=== PATIENT | male | born 1975 | race Caucasian/White ===

== ENCOUNTER 2023-06-14 20:57 | Emergency (ER) | payer MEDICAID ==
[~2023-06-14 20:57] MED LIST: FOLI-43 PO; LACT10SO81 MT; MIDO5TAB4 PO; PROT40 MT
[2023-06-14 21:00] VITALS: PULSE 99
== END 2023-06-14 21:19 | disposition home or self-care (01) ==
LOC: ER 20:57
DX: Z45.2 Encounter for adjustment and management of vascular access device (principal); F10.20 Alcohol dependence, uncomplicated; Y90.9 Presence of alcohol in blood, level not specified
CPT/HCPCS: 82962; 99281; 99282

== ENCOUNTER 2023-06-16 05:05 | Inpatient (IN) | payer MEDICAID ==
[~2023-06-16] VITALS: Ht 165.1 cm; Wt 62.6 kg
[2023-06-16 06:33] LABS: HEMATOCRIT. 27.2 % (42.0-52.0); HEMOGLOBIN. 9.2 g/dL (14.0-18.0); INDEX HEMOLYSI 1 (1-3); MEAN CORPUSCULAR HEMOGLOBIN 33.5 pg (28.0-32.0); MEAN CORPUSCULAR HGB CONC 33.7 g/dL (31.0-37.0); MEAN CORPUSCULAR VOLUME 99.3 fL (80.0-94.0); MEAN PLATELET VOLUME 9.5 fl (7.4-10.4); PLATELET 153 x1000/uL (130-400); RED BLOOD CELL COUNT 2.74 mill/uL (4.7-6.1); WHITE BLOOD COUNT 27.6 x1000/uL (4.5-11.0)
[2023-06-16 06:35] LABS: CHLORIDE 100 mEq/L (98-107); INDEX HEMOLYSI 1 (1-3); INDEX ICTERIC 6 (1-4); INDEX LIPEMIC 1 (1-3); POTASSIUM 5.9 mEq/L (3.5-5.1); SODIUM 124 mEq/L (136-145)
[2023-06-16 06:36] LABS: AMMONIA < 10 uMol/L (<32)
[2023-06-16 06:41] LABS: ALANINE AMINOTRANSFERASE 45 IU/L (13-61); ASPARTATE AMINOTRANSFERASE 116 IU/L (15-37); BILIRUBIN TOTAL 22.7 mg/dL (0.1-1.0); CARBON DIOXIDE 14 mEq/L (21-32); GLUCOSE 91 mg/dL (70-105); PROTEIN TOTAL 5.6 g/dL (6.0-8.3)
[2023-06-16 06:49] LABS: DIFFERENTIAL COMMENT 1
[2023-06-16 06:56] LABS: UREA NITROGEN BLOOD 85 mg/dL (7-21)
[2023-06-16 06:57] LABS: CREATININE 6.2 mg/dL (0.6-1.3)
[2023-06-16] MEDS ORDERED: FUROSEMIDE 100MG/10ML VIAL IV STA (07:09)
[2023-06-16] MEDS ORDERED: ALBUTEROL (0.083%) 2.5MG/3ML NEB HHN ONE (07:15)
[2023-06-16] MEDS ORDERED: INSULIN REGULAR (HUMULIN R) 300UNITS/3ML VIAL IV ONE (07:15)
[2023-06-16] MEDS ORDERED: SODIUM BICARBONATE 8.4% 1 MEQ/ML 50ML SYR IV ONE (07:15)
[2023-06-16] MEDS ORDERED: DEXTROSE 50% WATER 50ML SYRINGE IV ONE (07:15)
[2023-06-16] MEDS ORDERED: CALCIUM CHLORIDE 1GM/10ML SYR IV ONE (07:15)
[2023-06-16] MEDS ORDERED: FUROSEMIDE 40MG/4ML VIAL IVP SCH (07:45)
[2023-06-16 08:24] VITALS: PULSE 101; RESP 22; O2SAT 100
[2023-06-16 09:32] LABS: INDEX HEMOLYSI 2 (1-3); INDEX ICTERIC 6 (1-4); INDEX LIPEMIC 1 (1-3)
[2023-06-16 09:42] LABS: INDEX HEMOLYSI 1 (1-3)
[2023-06-16 09:45] LABS: CREATINE KINASE 26 IU/L (39-308); CREATINE KINASE MB FRACTION 1.2 ng/mL (0.5-3.6); ETHANOL BLOOD < 10 mg/dL (-10); HDL CHOLESTEROL 12 mg/dL (40-59); IRON 39 ug/dL (50-175); LDL CHOLESTEROL 28 mg/dL (5-100); T4 FREE 0.99 ng/dL (0.76-1.46); TOTAL IRON BINDING CAPACITY 52 ug/dL (250-450); TRIGLYCERIDE 92 mg/dL (0-150)
[2023-06-16] MEDS ORDERED: DOCUSATE SODIUM 100MG CAPSULE PO PRN (10:00)
[2023-06-16] MEDS ORDERED: ONDANSETRON HCL 4MG/2ML INJ IV PRN (10:00)
[2023-06-16] MEDS ORDERED: ACETAMINOPHEN 325MG TABLET PO PRN ×2 (10:00)
[2023-06-16] MEDS ORDERED: IPRATROPIUM/ALBUTEROL 0.5-3(2.5)MG/3ML NEB HHN PRN (10:00)
[2023-06-16] MEDS ORDERED: CLONIDINE 0.1MG TABLET PO PRN (10:00)
[2023-06-16] MEDS ORDERED: GUAIFENESIN 200MG/10ML SUGAR FREE UDC PO PRN (10:00)
[2023-06-16] MEDS ORDERED: ZOLPIDEM TARTRATE 5MG TABLET PO PRN (10:00)
[2023-06-16] MEDS ORDERED: LORAZEPAM 0.5MG TABLET PO PRN (10:00)
[2023-06-16] MEDS ORDERED: SODIUM CHLORIDE 0.9% 1,000 ML IV SCH (10:00)
[2023-06-16 10:07] LABS: CHOLESTEROL < 50 mg/dL (<200)
[2023-06-16 10:08] LABS: LACTIC ACID 2.8 mmol/L (0.4-2.0)
[2023-06-16 10:15] LABS: FOLIC ACID (FOLATE) SERUM > 20.00 ng/mL (>5.38); PLATELET ESTIMATE NORMAL; VITAMIN B12 SERUM > 2000.0 pg/mL (211-911)
[2023-06-16] MEDS ORDERED: SODIUM CHLORIDE 0.9% 1000ML BAG (SEPSIS BOLUS) IV NR (10:15)
[2023-06-16 10:16] LABS: ANISOCYTOSIS 2+
[2023-06-16] MEDS ORDERED: MEROPENEM 1,000 MG in SODIUM CHLORIDE 0.9% 100 ML IV SCH (10:30)
[2023-06-16] MEDS ORDERED: VANCOMYCIN 1.25GM PMX (XELLIA) 250 ML IV NR (11:00)
[2023-06-16] MEDS ORDERED: MEROPENEM 500MG in NORMAL SALINE 50ML IV SCH (11:00)
[2023-06-16] MEDS ORDERED: ENOXAPARIN 30MG/0.3ML SYR SUBCUT SCH (11:00)
[2023-06-16] MEDS ORDERED: SODIUM BICARBONATE 5MEQ SYR 150 MEQ in DEXTROSE 5% WATER 1,000 ML IV SCH (11:15)
[2023-06-16 11:28] LABS: BG BASE EXCESS -12.4 mmol/L (-2.0-2.0); BG CARBOXYHEMOGLOBIN 1.3 % (0.5-1.5); BG DEOXYHEMOGLOBIN 3.7 % (0.0-5.0); BG FRACTION INSPIRED OXYGEN 21; BG HCO3 ACT 11.2 mmol/L (22.0-26.0); BG METHEMOGLOBIN 0.4 % (0.0-1.5); BG OXYGEN SATURATION 96.2 % (92.0-98.5); BG OXYHEMOGLOBIN 94.6 % (94.0-97.0); BG PH 7.367 (7.350-7.450); BG PO2 85.9 mmHg (75.0-100.0); BG SAMPLE SITE LEFT RADIAL; BG TOTAL HEMOGLOBIN 9.2 g/dL (12.0-18.0); BG VENT MODE ROOM AIR
[2023-06-16] MEDS ORDERED: SODIUM POLYSTYRENE SULFONATE 15 G/60 ML BOT PO SCH (11:30)
[2023-06-16] MEDS ORDERED: ALBUMIN HUMAN 25GM/100ML (25%) IV SCH (11:30)
[2023-06-16 12:00] VITALS: BP 95/58; PULSE 95; RESP 20; TEMP 97.7
[2023-06-16] MEDS ORDERED: SODIUM BICARBONATE 150 MEQ in DEXTROSE 5% WATER 1,000 ML IV SCH (12:00)
[2023-06-16 13:37] VITALS: BP 95/56; PULSE 68; RESP 18; TEMP 97.7
== END 2023-06-16 17:10 | disposition left against medical advice (07) | DRG 720 ==
LOC: ER 05:05 → 5EST 07:35 → EDBEDREQ 07:36 → EDBEDREQSVC 07:36 → EDBEDREQTM 07:36
PROVIDERS: ADMIT Internal Medicine; ATTEND Internal Medicine
DX: A41.9 Sepsis, unspecified organism (principal); N17.0 Acute kidney failure with tubular necrosis; E43 Unspecified severe protein-calorie malnutrition; K85.90 Acute pancreatitis without necrosis or infection, unspecified; E87.20 Acidosis, unspecified; I85.10 Secondary esophageal varices without bleeding; K70.31 Alcoholic cirrhosis of liver with ascites; E87.1 Hypo-osmolality and hyponatremia; R65.20 Severe sepsis without septic shock; Z53.29 Procedure and treatment not carried out because of patient's decision for other reasons; E87.5 Hyperkalemia; N18.2 Chronic kidney disease, stage 2 (mild); F10.20 Alcohol dependence, uncomplicated; D64.9 Anemia, unspecified; Z87.891 Personal history of nicotine dependence; Z68.23 Body mass index [BMI] 23.0-23.9, adult; Z82.49 Family history of ischemic heart disease and other diseases of the circulatory system
CPT/HCPCS: 36415; 36600; 71045; 76705; 76770; 80053; 80061; 80320; 82140; 82375; 82550; 82553; 82607; 82746; 82805; 82962; 83036; 83540; 83550; 83605; 84145; 84439; 84443; 85025; 93970; 94644; 99291; J1650; J1815; J1940; J2185; J3370; J3490; J7070; P9047; G0480